=== PATIENT | female | born 1960 | race Caucasian/White ===

== ENCOUNTER 2020-07-30 19:46 | Emergency (ER) | payer MEDICARE, MEDICAID ==
[~2020-07-30] VITALS: Ht 165.1 cm; Wt 66.8 kg
[2020-07-30 21:54] VITALS: BP 170/88
== END 2020-07-30 22:02 | disposition home or self-care (01) ==
LOC: ER 19:47
DX: J02.9 Acute pharyngitis, unspecified (principal); F15.90 Other stimulant use, unspecified, uncomplicated; R05 Cough; Z59.0 Homelessness; Z88.8 Allergy status to other drugs, medicaments and biological substances
CPT/HCPCS: 99284

== ENCOUNTER 2020-08-01 16:27 | Emergency (ER) | payer MEDICARE, MEDICAID ==
[~2020-08-01] VITALS: Ht 165.1 cm; Wt 65.0 kg
[2020-08-01 16:37] VITALS: BP 124/97
[2020-08-01] MEDS ORDERED: AMOX-419 PO (18:04)
== END 2020-08-01 18:39 | disposition home or self-care (01) ==
LOC: ER 16:28
DX: J32.9 Chronic sinusitis, unspecified (principal); J02.9 Acute pharyngitis, unspecified; F15.90 Other stimulant use, unspecified, uncomplicated; Z59.0 Homelessness; Z88.8 Allergy status to other drugs, medicaments and biological substances; Z79.899 Other long term (current) drug therapy
CPT/HCPCS: 99283